=== PATIENT | female | born 1990 | race Asian ===

== ENCOUNTER 2017-03-03 02:45 | Emergency (ER) | payer MEDICAID ==
[~2017-03-03] VITALS: Ht 170.2 cm; Wt 122.0 kg
[2017-03-03 04:28] VITALS: BP 140/84
== END 2017-03-03 04:28 | disposition home or self-care (01) ==
LOC: ED 02:45
DX: S93.402A Sprain of unspecified ligament of left ankle, initial encounter (principal); X58.XXXA Exposure to other specified factors, initial encounter; Y93.89 Activity, other specified; Y92.89 Other specified places as the place of occurrence of the external cause; Y99.8 Other external cause status
CPT/HCPCS: Q0092

== ENCOUNTER 2017-11-09 21:24 | Emergency (ER) | payer OTHER ==
[2017-11-09 23:05] VITALS: BP 152/88
== END 2017-11-09 23:05 | disposition home or self-care (01) ==
LOC: ED 21:24
DX: R19.7 Diarrhea, unspecified (principal); R03.0 Elevated blood-pressure reading, without diagnosis of hypertension; F17.210 Nicotine dependence, cigarettes, uncomplicated; R10.30 Lower abdominal pain, unspecified; M54.9 Dorsalgia, unspecified; R11.0 Nausea; R35.0 Frequency of micturition; Z71.6 Tobacco abuse counseling
CPT/HCPCS: 99406; Q0162

== ENCOUNTER 2020-03-10 12:03 | Emergency (ER) | payer OTHER ==
[~2020-03-10] VITALS: Ht 170.2 cm; Wt 120.2 kg
[2020-03-10 12:12] VITALS: BP 118/72; Ht 170.2 cm; Wt 120.2 kg
[2020-03-10 12:57] LABS: BASOPHIL % 0.3 % (0-2); PLATELET COUNT 352 x10^3mcL (130-400)
[2020-03-10 13:06] LABS: CALCIUM 8.9 mg/dL (8.5-10.1); CARBON DIOXIDE 25.8 mmol/L (21-32); CHLORIDE SERUM 101 mmol/L (98-107); CREATININE SERUM 0.9 mg/dL (0.6-1.0); GFR1 > 60 mL/min; GLUCOSE SERUM 99 mg/dL (74-106); POTASSIUM SERUM 3.4 mmol/L (3.5-5.1); SODIUM SERUM 136 mmol/L (136-145)
[2020-03-10 13:10] LABS: ALKALINE PHOSPHATASE 61 U/L (46-116); ALT/SGPT 38 U/L (14-59); AST/SGOT 25 U/L (15-37); BILIRUBIN TOTAL 0.5 mg/dL (0.20-1.00); TOTAL PROTEIN, SERUM 7.9 g/dL (6.4-8.2)
[2020-03-10 13:16] LABS: ALBUMIN 3.1 g/dL (3.4-5.0)
[2020-03-11] MEDS ORDERED: TYL325 PO (13:45)
== END 2020-03-10 14:12 | disposition left against medical advice (07) ==
LOC: ED 12:03
PROVIDERS: Emergency Medicine
DX: K35.80 Unspecified acute appendicitis (principal)
CPT/HCPCS: J1885

== ENCOUNTER 2020-03-10 15:32 | Observation (INO) | payer OTHER ==
[~2020-03-10] VITALS: Ht 170.2 cm; Wt 122.0 kg
[2020-03-10 15:42] VITALS: Ht 170.2 cm; Wt 122.0 kg
--- NOTE | 2020-03-10 16:44 | NUR ---
PT RETURNED TO ED FOR FURTHER TREATMENT OF APPENDICITIS. SHE WAS DIAGNOSED EARLIER TODAY BUT LEFT ED TO ATTEND BROTHERS . PT C/O RLQ PAIN FOR APPROX 2 WEEKS. STATES PAIN WITH PALPATION. ABD SOFT. NON RIGID. PT AWAKE AND ALERT. BREATHING EVEN UNLABORED. NO DISTRESS NOTED.
[2020-03-10 17:42] LABS: BASOPHIL % 0.3 % (0-2); PLATELET COUNT 371 x10^3mcL (130-400); RED CELL DISTRIBUTION WIDTH 13.1 % (11.5-14.5)
[2020-03-10 17:52] LABS: CARBON DIOXIDE 24.2 mmol/L (21-32); CHLORIDE SERUM 104 mmol/L (98-107); GFR1 > 60 mL/min; GLUCOSE SERUM 97 mg/dL (74-106); POTASSIUM SERUM 3.5 mmol/L (3.5-5.1); SODIUM SERUM 138 mmol/L (136-145)
--- NOTE | 2020-03-10 18:49 | NUR ---
PT RESTING COMFORTABLY ON GURNEY. BREATHING EVEN UNLABORED. NO DISTRESS. STATES SHE IS PAIN FREE AT THIS TIME. ANTIBIOTICS CURRENTLY INFUSING. CONTINUE TO MONITOR
--- NOTE | 2020-03-10 19:28 | NUR ---
REPORT GIVEN TO [facility] LYLES OR
--- NOTE | 2020-03-10 23:12 | NUR ---
RECEIVED PT. FROM OR. PT. RESTING QUIELTY. IVF NS ORDERED AND STARTED. DENIES ANY PAIN, DENIES NEED FOR PAIN MEDICATION. INCISON WITH MAGDA HENDRICKSON. CALL LIGHT WITHIN REACH.
--- NOTE | 2020-03-10 23:43 | NUR ---
PT. C/O ABD. PAIN, 07/14. PRN MORPHINE GIVEN ORDERED. BP 108/58, MAP 80, HR 71. WILL MONITOR.
[2020-03-11 00:15] VITALS: BP 106/60
--- NOTE | 2020-03-11 00:27 | NUR ---
RECEIVED PT FROM OR. PT ADMIT FOR ACUTE APPENDICITIS. S/P LAP APPY. 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 LUNG SOUND CLEAR BILATERAL, NO COUGH, NO SOB. PT DENY ANY CHEST PAIN OR DISCOMFORT, BOWEL SOUND ABSENT. THERE ARE 3 INCISION WITH DERMABOND. NO DRAINAGE, NO BLEEDING. 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 PEDAL PULSE PRESENT BOTH FEET, NO EDEMA, IV AT LAC, NO LEAKING, NO INFILTRATION. ALL ADLS ASSIST, ALL NEED MET, CALL LIGHT IN REACH, WILL CONTINUE TO MONITOR.
--- NOTE | 2020-03-11 02:42 | NUR ---
PT. SLEEPING. RECEIVED PAIN MEDICATION FOR ABD.PAIN. INCISIONS REMAINS INTACT, NO DRAINAGE OR BLEEDING NOTED. IVF INFUSING WELL, CALL LIGHT WITHIN REACH.
[2020-03-11 05:03] VITALS: BP 103/62
--- NOTE | 2020-03-11 06:40 | NUR ---
NO C/O ABD.PAIN OR DISCOMFORT THIS MORNING. 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 CALL LIGH WITHIN REACH. WILL ENDORSE PT. CARE TO INCOMING NURSE.
[2020-03-11 08:00] VITALS: BP 122/78
[2020-03-11 08:11] LABS: ALKALINE PHOSPHATASE 61 U/L (46-116); ALT/SGPT 34 U/L (14-59); AST/SGOT 23 U/L (15-37); BILIRUBIN TOTAL 0.7 mg/dL (0.20-1.00); CALCIUM 8.7 mg/dL (8.5-10.1); CARBON DIOXIDE 24.3 mmol/L (21-32); CHLORIDE SERUM 104 mmol/L (98-107); GFR1 > 60 mL/min; GLUCOSE SERUM 104 mg/dL (74-106); MAGNESIUM 2.2 mg/dL (1.8-2.4); POTASSIUM SERUM 4.2 mmol/L (3.5-5.1); SODIUM SERUM 139 mmol/L (136-145); TOTAL PROTEIN, SERUM 7.8 g/dL (6.4-8.2)
[2020-03-11 08:14] LABS: ALBUMIN 2.9 g/dL (3.4-5.0)
[2020-03-11 10:42] LABS: PLATELET COUNT 368 x10^3mcL (130-400); RED CELL DISTRIBUTION WIDTH 13.2 % (11.5-14.5)
[2020-03-11 10:45] LABS: BASOPHIL % 0 % (0-2)
[2020-03-11] MEDS ORDERED: TYL325 PO (13:45)
[2020-03-11 15:47] VITALS: BP 122/78
== END 2020-03-11 16:52 | disposition home or self-care (01) ==
LOC: ED 15:32 → MU 17:30
PROVIDERS: Emergency Medicine; ADMIT Hospitalist; ATTEND Hospitalist
DX: K35.80 Unspecified acute appendicitis (principal)
CPT/HCPCS: G0378; J0131; J1170; J1885; J2175; J2250; J2270; J2405; J2543; J3010; J3490; J7030